=== PATIENT | female | born 1965 | race Two or more races ===

== ENCOUNTER → 2025-05-05 | Outpatient (CLI) | payer MEDICAID, SELFPAY ==
--- NOTE | 2025-05-05 13:45 | XR_ITS ---
Examination: Screening digital mammography, bilateral Computer aided detection 3-D breast Tomosynthesis, bilateral Date and time of exam: May 05, 2025, 1338 hours, compared to mammograms dating to October 26, 2006 Indication: Screening Technique: Nonmagnified MLO, CC views of the breasts to been obtained, reconstructed from 3-D Tomosynthesis images. R2 computer aided detection program utilized for evaluation of suspicious masses and/or abnormal calcifications. 3-D Tomosynthesis images obtained. Findings: Scattered areas of fibroglandular density. Benign calcifications. No interval suspicious mass Impression: BI-RADS category II: Benign Findings. Recommend 1 year follow-up mammogram.
== END | disposition home or self-care (01) ==
PROVIDERS: PCP Physician Assistant; Referring Provider Physician Assistant; Visit Provider Physician Assistant
DX: Z12.31 Encounter for screening mammogram for malignant neoplasm of breast (principal); R92.323 Mammographic fibroglandular density, bilateral breasts; R92.1 Mammographic calcification found on diagnostic imaging of breast
CPT/HCPCS: 77063; 77067

== ENCOUNTER 2025-05-17 09:09 | Emergency (ER) | payer MEDICAID, SELFPAY ==
[2025-05-17 09:10] VITALS: BMI 24.4
[2025-05-17 10:21] VITALS: BP 147/79; PULSE 87; RESP 16; TEMP 37; O2SAT 98
--- NOTE | 2025-05-17 10:26 | XR_ITS ---
Examination: Wrist, left 3 views Technique: Wrist AP, oblique, lateral 3 views Date and time of exam: May, 10 0 4:00 a.m. INDICATIONS: Injury of the wrist today, wrist pain. FINDINGS: Severe osteopenia Advanced osteoarthritis first carpal metacarpal joint No acute fracture IMPRESSION: No acute fracture
--- NOTE | 2025-05-17 10:26 | EDNOTE_ITS ---
ED Fall Injury RME/HPI General Chief Complaint: Fall Stated Complaint: FALL, L HAND PAIN Time Seen by Provider: 05/17/25 10:25 Arrival date/time: 05/17/25 09:09 RME / HPI RME / HPI Narrative: See [facility] for Dr. Farooq's HPI Documentation. Related Data Previous Rx's ?Medication ?Instructions ?Recorded acetaminophen 300 mg-codeine 30 mg 2 tab PO Q8H PRN pa in #10 tabs 05/17/25 tablet ibuprofen 600 mg tablet 600 mg PO TID PRN fever or p ain 05/17/25 #30 tabs Allergies Allergy/AdvReac Type Severity Reaction Status Date / Time No Known Allergies Allergy Verified 05/17/25 09:13 Review of Systems Review of Systems Systems Reviewed: All systems reviewed, normal except as documented Past Medical History Social History SMOKING STATUS: Never smoker SUBSTANCE USE: does not use ALCOHOL: Never ED Exam Narrative Physical exam: See [facility] for Dr. Farooq's HPI Documentation. Course Quality Measures none Orders Category Date Time Status Splint / Immobilizer STAT Care 05/17/25 11:39 Completed XR wrist comp LT min 3V Stat Exams 05/17/25 10:26 Completed ACETAMINOPHEN w/COD 300-30 [Tylenol w/Cod #3] Med 05/17/25 10:26 Discontinued 2 tab PO X1 ONE Ibuprofen Tab [Motrin Tab] Med 05/17/25 10:26 Discontinued 600 mg PO X1 ONE Vital Signs Vital signs: Vital Signs Temperature 98.6 F 05/17/25 10:21 Pulse Rate 87 05/17/25 10:21 Respiratory Rate 16 05/17/25 10:21 Blood Pressure 147/79 H 05/17/25 10:21 Pulse Oximetry (%) 98 05/17/25 10:21 Oxygen Delivery Method Room Air 05/17/25 10:21 Fall [facility] Narrative [facility] Narrative:: This section includes all my notes and documentations, including HPI, PE, and ED course. Rocco Farooq MD HPI: 59-year-old female here after falling on her left wrist a few hours ago. No head injury. Reports pain and swelling in the wrist. No other injury. No other complaints. ROS: All negative except as documented in HPI. Physical Exam: General:? Alert and oriented.? No acute distress when remaining still. Eyes:? Conjunctivae and lids clear.? EOMI.? PERRL. ENT:? No signs of head trauma. Neck:? Supple.? No tenderness. Heart:? RRR. Lungs:? No respiratory distress.? Good air movement.? No rhonchi, wheezing, rales.? Chest:? No tenderness. Abdomen:? Soft and nontender.? Normal bowel sounds.? No distension.? No rebound or guarding.? Back:? No tenderness.? Skin:? Warm and dry.? Neuro:? Alert and oriented X 3.? Cranial Nerves II-XII grossly intact.? No peripheral motor deficits. Musculoskeletal: Remarkable for left wrist tenderness and edema. All other major joints and bones are not tender with no limited ROM.\ My review of the left wrist x-rays is no fracture. At this point, diagnoses include: Left wrist sprain Treatment here included: Ibuprofen 600 mg Two Tylenol #3 Wrist splint She felt much better. Recommended conservative treatment. Based on my best medical judgment, made decision no further evaluation or treatment indicated at this time. Patient understands and agrees to the discharge instructions customized and printed, see below. Discharge Instructions from Dr. Farooq printed for you: 1. Fortunately, there is no broken bone. 2. With wrist sprain, you should get better in about a week. 3. For rest needed to heal, wear the wrist splint for 4 days then as needed. 4. Elevate above the heart level for 3 days as much as possible. Placing your hand on your head is a good method. 5. Apply ice for 20 minutes every 2-3 hours today and tomorrow. 6. Ibuprofen 600 mg every 6-8 hours today and tomorrow to decrease inflammation then as needed. 7. Tylenol with codeine for severe pain. 8. See a private doctor on 05/19/2025. Ask for help until you are completely better. 9. Seek immediate medical care with worsening or with any concerns. Instrucciones de gonzalo del Dr. Farooq impresas para usted: 1. Afortunadamente, no hay fractura. 2. Con un esguince de mu?eca, deber?a recuperarse en aproximadamente rod semana. 3. Para el reposo necesario para la recuperaci?n, use la f?mai de mu?eca esau 4 d?as y luego seg?n sea necesario. 4. Eleve la mu?eca por encima del nivel del coraz?n esau 3 d?as tanto anthony sea posible. Colocar la mano sobre la aria es un buen m?todo. 5. Aplique hielo esau 20 minutos cada 2-3 horas hoy y ma?carlyn. 6. [place] ibuprofeno 600 mg cada 6-8 horas hoy y ma?carlyn para disminuir la inflamaci?n y luego seg?n sea necesario. 7. Paracetamol con code?na para el dolor intenso. 8. Consulte a un m?dico particular el 05/19/2025. Solicite ayuda hasta que se recupere por completo. 9. Busque atenci?n m?dica inmediata si empeora o si tiene alguna inquietud. Rocco Farooq MD Patient data External records reviewed:: None (no previous visits) Clinical information provided by:: patient Social determinants that could affect healthcare access:: none Patient has the following chronic illnesses:: No known past medical history. How is presenting disease/condition affected by chronic disease/condition?: no chronic disease Evaluation data The following diagnostics were reviewed and interpreted by me:: radiology exam(s) Lab and/or radiology exams considered but not ordered:: none Interpretation Summary: My review of the left wrist x-rays is no fracture. Medications / Prescriptions Medications or Prescriptions considered but not ordered:: none Medication administrations:: Medication Administration History Discontinued Medications Acetaminophen/Codeine Phosphate (Acetaminophen W/Cod 300-30 Tablet) 2 tab PO X1 ONE Stop: 05/17/25 10:27 Last Admin: 05/17/25 11:34 Dose: 2 tab Documented By: ED Ibuprofen (Ibuprofen Tab 600 Mg Tablet) 600 mg PO X1 ONE Stop: 05/17/25 10:27 Last Admin: 05/17/25 11:33 Dose: 600 mg Documented By: ED Treatment here included: Ibuprofen 600 mg Two Tylenol #3 Wrist splint Consultations Consultation(s) initiated? (list below): No Diagnosis Fall Differential Diagnosis: fracture of wrist and other (Wrist fracture, wrist sprain, and contusion) Most likely diagnosis given after review of the tests above:: Left wrist sprain Admission Indicated Admission indicated?: not indicated Explain why admission is indicated or not indicated:: With no condition needing urgent intervention, admission was not indicated. Admission Request Was there a request for admission?: No Disposition Plan Disposition Plan: Discharge Discharge Attestation Discharge Attestation: The patient and all family members were given an opportunity to ask questions an d understood the discharge instructions. Discharge instructions specifically effects, indications for sooner follow up or return to the emergency department, and the expected course of current diagnosis. Patient condition: Stable Discharge Plan Plan Patient Disposition: HOME (Self Care) Prescriptions/Referrals Prescriptions/Med Rec: New acetaminophen-codeine 300-30 mg tablet 2 tab PO Q8H MDD 6 PRN (Reason: pain) Qty: 10 0RF ibuprofen 600 mg tablet 600 mg PO TID PRN (Reason: fever or pain) Qty: 30 0RF Referrals: Fariha Santiago PA-C [Primary Care Provider] - In 1 week Problem List Clinical Impression: Left wrist sprain Patient/Caregiver Discharge Instructions Discharge Activity: activity as tolerated Education Materials: ED Wrist Sprain Additional Instructions: Discharge Instructions from Dr. Farooq printed for you: 1. Fortunately, there is no broken bone. 2. With wrist sprain, you should get better in about a week. 3. For rest needed to heal, wear the wrist splint for 4 days then as needed. 4. Elevate above the heart level for 3 days as much as possible. Placing your hand on your head is a good method. 5. Apply ice for 20 minutes every 2-3 hours today and tomorrow. 6. Ibuprofen 600 mg every 6-8 hours today and tomorrow to decrease inflammation then as needed. 7. Tylenol with codeine for severe pain. 8. See a private doctor on 05/19/2025. Ask for help until you are completely better. 9. Seek immediate medical care with worsening or with any concerns. Instrucciones de gonzalo del Dr. Farooq impresas para usted: 1. Afortunadamente, no hay fractura. 2. Con un esguince de mu?eca, deber?a recuperarse en aproximadamente rod semana. 3. Para el reposo necesario para la recuperaci?n, use la f?mai de mu?eca esau 4 d?as y luego seg?n sea necesario. 4. Eleve la mu?eca por encima del nivel del coraz?n esau 3 d?as tanto anthony sea posible. Colocar la mano sobre la aria es un buen m?todo. 5. Aplique hielo esau 20 minutos cada 2-3 horas hoy y ma?carlyn. 6. [place] ibuprofeno 600 mg cada 6-8 horas hoy y ma?carlyn para disminuir la inflamaci?n y luego seg?n sea necesario. 7. Paracetamol con code?na para el dolor intenso. 8. Consulte a un m?dico particular el 05/19/2025. Solicite ayuda hasta que se recupere por completo. 9. Busque atenci?n m?dica inmediata si empeora o si tiene alguna inquietud. Print Language: [place]ian Stand Alone Forms: Susan Award Info., Patient Portal Info Letter
[2025-05-17] MEDS: IBUPROFEN TAB 600 MG TABLET PO (11:33)
[2025-05-17] MEDS: ACETAMINOPHEN w/COD 300-30 TABLET 2 TAB PO (11:34)
== END 2025-05-17 13:09 | disposition home or self-care (01) ==
PROVIDERS: Emergency Provider Emergency Medicine; PCP Physician Assistant
DX: S63.502A Unspecified sprain of left wrist, initial encounter (principal); W19.XXXA Unspecified fall, initial encounter
CPT/HCPCS: 29125; 73110; 99282; A9270